=== PATIENT | female | born 1985 | race Caucasian/White ===

== ENCOUNTER 2021-11-16 07:12 | Emergency (ER) | payer OTHER, SELFPAY ==
--- NOTE | ~2021-11-16 | XR_ITS ---
EXAMINATION: XR chest 2V DATE: 11/16/2021 07:49 INDICATION: Midsternal chest pain. TECHNIQUE: Frontal and lateral views of the chest were obtained. COMPARISON: CT abdomen and pelvis 09/03/2017 FINDINGS: The chest demonstrates clear lungs without pneumonia, pleural effusion, or pneumothorax. Th e heart size is normal. There is mild chronic anterior wedging of multiple vertebral bodies. IMPRESSION: 1. No acute cardiopulmonary disease. Reviewed, dictated and finalized at location A. TRIC MOTOR REBUILDER
[2021-11-16 07:21] VITALS: BP 122/87; PULSE 105; RESP 18; TEMP 36.6; O2SAT 100
[2021-11-16 07:33] VITALS: PULSE 106
--- NOTE | 2021-11-16 07:34 | ECG_ITS ---
Measurements Intervals [place] Rate: 116 P: 25 W[place]: 116 QRS: 6 QRSD: 90 T: 10 QT: 326 QTc: 453 Interpretive Statements SINUS TACHYCARDIA WITH SHORT [place] INTERVAL DELAYED PRECORDIAL R/S TRANSITION CONSIDER INFERIOR INFARCT, AGE INDETERMINATE BASELINE ARTIFACT- II, III, AVR, AVF, V1-V6 ABNORMAL ECG Electronically Signed On 11-16-2021 11:55:23 HEALTH SERVICES MANAGER by Deuce Jackson D.O.
[2021-11-16 07:42] LABS: Basophils Percent Auto 0.3 % (0.2-1.2); Eosinophils Percent Auto 0.3 % (0-4.4); Hematocrit 44.9 % (37.0-47.0); Hemoglobin 14.4 g/dL (12.0-15.0); Immature Granulocyte Absolute 0.01 K/mm3 (0.00-0.031); Immature Granulocyte Percent A 0.2 % (0-0.5); Lymphocytes Absolute Auto 1.02 K/mm3 (0.9-3.2); Lymphocytes Percent Auto 16.5 % (18.3-44.2); Mean Corpuscular HGB Conc 32.1 g/dl (32-36); Mean Corpuscular Hemoglobin 27.8 pg (26-34); Mean Corpuscular Volume 86.7 fl (80-100); Mean Platelet Volume 9.4 fl (7.4-10.4); Monocytes Absolute Auto 0.4 K/mm3 (0.1-0.6); Monocytes Percent Auto 6.1 % (2.6-8.5); Neutrophils Absolute Auto 4.8 K/mm3 (1.3-6.7); Neutrophils Percent Auto 76.6 % (45.5-73.1); Platelet Count Result 335 k/mm3 (150-375); Red Blood Count 5.18 M/mm3 (4.2-5.4); Red Cell Distribution Width 14.7 % (11.5-14.5); White Blood Count 6.2 K/mm3 (4.5-10.0)
[2021-11-16 07:52] LABS: Alanine Aminotransferase 21 U/L (4-35); Albumin Level 4.3 g/dL (3.5-5.1); Alkaline Phosphatase 115 U/L (38-126); Anion Gap 10 mmol/L (8-16); Aspartate Amino Transferase 29 U/L (14-36); Bilirubin,Total 0.8 mg/dL (0.2-1.3); Blood Urea Nitrogen 13 mg/dL (7-17); Calcium 9.1 mg/dL (8.4-10.2); Carbon Dioxide 26 mmol/L (22-30); Chloride 102 mmol/L (98-107); Estimated CRCL calculation 135 ml/min; Estimated Glomerular Filt Rate > 60; Glucose 134 mg/dL (65-110); Lipase 53 U/L (23-300); Potassium 3.9 mmol/L (3.4-5.0); Sodium 138 mmol/L (137-145)
[2021-11-16 07:53] LABS: Prothrombin Time 12.7 Seconds (11.1-14.7)
[2021-11-16 07:54] LABS: Partial Thromboplastin Time 32.3 SECONDS (22.3-36.8)
[2021-11-16] MEDS: ASPIRIN 81 MG CHEWABLE TABLET 324 MG PO (07:54)
[2021-11-16 08:03] LABS: Troponin I < 0.012 ng/mL (0.000-0.034)
--- NOTE | 2021-11-16 08:40 | ED.CHESTPAIN ---
HPI - Chest Pain General Chief Complaint: Chest Pain Stated Complaint: Multiple Complaints, Chest Tightness Time Seen by Provider: 11/16/21 07:47 Source: patient and family Mode of arrival: ambulatory Limitations: no limitations History of Present Illness HPI narrative: Patient presents with chest tightness across the chest that started yesterday, at rest 10 out of 10, lasted for hours, currently 1 out of 10. Patient denies aggravating or relieving factors. Patient started on citalopram 1 month ago, 2 weeks later discontinued because of similar symptoms including chest tightness, lightheadedness, dizziness, tremors, shaking, poor concentration and headache. Then patient started on bupropion 2 weeks ago, patient been reading the medicine side effects and felt every one of them. Patient denies any history of hypertension, diabetes, hyperlipidemia, family history of coronary artery disease. Patient does not smoke. Related Data Allergies Allergy/AdvReac Type Severity Reaction Status Date / Time ciprofloxacin Allergy Unknown Hives Verified 11/16/21 07:32 citalopram Allergy Swelling Verified 11/16/21 07:32 of the Eye Review of Systems Review of Systems: CONSTITUTIONAL: Denies fever, chills, or sweats. EYES: Denies visual changes, redness, or discharge. ENT: Denies rhinorrhea, congestion, sore throat, or otalgia. CARDIOVASCULAR: Denies chest pain, palpitations, or edema. RESPIRATORY: Denies cough or dyspnea. GASTROINTESTINAL: Denies abdominal pain, nausea, vomiting, or diarrhea. GENITOURINARY: Denies dysuria or hematuria. SKIN: Denies rash or itching. MUSCULOSKELETAL: Denies back pain, joint pain, or myalgia. NEUROLOGIC: Denies headache, numbness, or weakness. PSYCHIATRIC: Denies anxiety or depression. Exam Narrative: General appearance: Well-developed, well-nourished Skin: Normal color Head: Normocephalic, nontraumatic Eyes: Clear conjunctiva ENT: Oropharynx normal, ears normal, nose normal Neck: Supple, nontender Chest and respiratory: Airway patent, no respiratory distress, no accessory muscle use Heart: Regular rate/rhythm Abdomen: Soft, nontender, no organomegaly, quiet bowel sounds Vascular: Normal peripheral pulses, normal capillary refill. Musculoskeletal: Normal range of motion, nontender back Neurologic: Alert and oriented ?3, RIPSAWYER is normal as tested, no gross motor deficit Course Course Emergency Course: Improving Vital Signs Vital signs: Vital Signs Temperature 36.6 C 11/16/21 07:21 Pulse Rate 105 H 11/16/21 07:21 Respiratory Rate 18 11/16/21 07:21 Blood Pressure 122/87 11/16/21 07:21 Pulse Oximetry 100 11/16/21 07:21 Temperature 36.6 C 11/16/21 07:21 Pulse Rate 106 H 11/16/21 07:33 Respiratory Rate 18 11/16/21 07:21 Blood Pressure 122/87 11/16/21 07:21 Pulse Oximetry 100 11/16/21 07:21 MDM - Chest Pain MDM Narrative Medical decision making narrative: Patient symptoms is consistent with anxiety/depression, possible side effect of bupropion. The medication will stopped, patient need to call her family physician for another medicine. Differential Diagnosis Differential diagnosis: Likely atypical chest pain and other (Depression, anxiety) Lab Data Result diagrams: 11/16/21 07:36 11/16/21 07:36 Labs: Lab Results 11/16/21 11/16/21 11/16/21 Range/Units 07:36 07:36 07:36 WBC 6.2 (4.5-10.0) K/mm3 RBC 5.18 (4.2-5.4) M/mm3 Hgb 14.4 (12.0-15.0) g/dL Hct 44.9 (37.0-47.0) % MCV 86.7 (80-100) fl MCH 27.8 (26-34) pg MCHC 32.1 (32-36) g/dl RDW 14.7 H (11.5-14.5) % Plt Count 335 (150-375) k/mm3 MPV 9.4 (7.4-10.4) fl
[2021-11-16 09:11] VITALS: PULSE 96; RESP 18; O2SAT 100
== END 2021-11-16 09:12 | disposition home or self-care (01) ==
PROVIDERS: Emergency Provider Emergency Medicine
DX: R07.89 Other chest pain (principal)
CPT/HCPCS: 36415; 71046; 80053; 83690; 84484; 85025; 85610; 85730; 93005; 99284; A9270

== ENCOUNTER 2023-12-07 11:05 | Emergency (ER) | payer OTHER, SELFPAY ==
--- NOTE | ~2023-12-07 | US_ITS ---
Duplex Sonography of the left extremity: Indication: Pain Findings: Sagittal and transverse B-mode images as well as color-flow imaging were performed on the l eft femoral and popliteal veins. B-mode examination was done without and with compression in the tra nsverse plane. There is good visualization of the common femoral, proximal profunda femoral, superfi cial femoral, greater saphenous, and popliteal veins. Normal flow was seen on color-flow imaging. No rmal compressibility was demonstrated. Visualized calf veins are also patent. Impression: No evidence of deep vein thrombosis involving the left lower extremity. Reviewed, dictated and finalized at location M. UDING PRESS ADJUSTER Impression: No evidence of deep vein thrombosis involving the left lower extremity.
[2023-12-07 11:28] VITALS: BP 151/98; PULSE 99; RESP 17; TEMP 36.2; O2SAT 99
--- NOTE | 2023-12-07 12:11 | ED.GENADULT ---
HPI - General Adult General Chief complaint: Extremity Injury, Lower <Odessa Rhodes March VICE PRESIDENT [employer]WORK - Last Filed: 12/09/23 20:05> Stated complaint: above L knee pain, redness, tenderness, swellling <Odessa Rhodes MarchMICHAELN - Last Filed: 12/09/23 20:05> Time Seen by Provider: 12/07/23 12:35 <Odessa Rhodes March VICE PRESIDENT [employer]WORK - Last Filed: 12/09/23 20:05> Source: patient <Jessica Jones MD - Last Filed: 12/08/23 13:39> Mode of arrival: ambulatory <Jessica Jones MD - Last Filed: 12/08/23 13:39> Limitations: no limitations <Jessica Jones MD - Last Filed: 12/08/23 13:39> History of Present Illness HPI narrative: Silke San is a 38 y/o female hx of PCOS not on any daily medications comes in with complaints of having left lower leg pain that she first noticed about a week, improved on its own and then back the last couple days. She states she does have some redness to the area of pain/ no rashes/lesions/ open wounds. No hx of DVT. Pain is worse with palpation and she notices it when shes laying in bed but does not notice that walking/ ROM makes the pain worse/ Denies any trauma/ fall/ known injury <Odessa Rhodes March, VICE PRESIDENT NETWORK - Last Filed: 12/09/23 20:05> Silke San is a 38 y/o female hx of PCOS not on any daily medications comes in with complaints of having left lower leg pain that she first noticed about a week, improved on its own and then back the last couple days. She states she does have some redness to the area of pain/ no rashes/lesions/ open wounds. No hx of DVT. Pain is worse with palpation and she notices it when shes laying in bed but does not notice that walking/ ROM makes the pain worse/ Denies any trauma/ fall/ known injury . It is located above and below the knee joint, red, tender and swollen. /10 in severity. Not on hormones/OCPs. no recent travel. No family Hx of unprovoked DVT/PE (maternal grandfather might have developed a blood clot after a hip fracture). PCP Dr [facility] at [facility] <Jessica Jones MD - Last Filed: 12/08/23 13:39> Related Data Allergies/adverse reactions: Allergies Allergy/AdvReac Type Severity Reaction Status Date / Time ciprofloxacin Allergy Unknown Hives Verified 12/07/23 12:21 citalopram Allergy Swelling Verified 12/07/23 12:21 of the Eye <Odessa Hartley, VICE PRESIDENT NETWORK - Last Filed: 12/09/23 20:05> Review of Systems Review of Systems: All systems reviewed & are unremarkable except as noted in HPI and below <Odessa Rhodes March VICE PRESIDENT [employer]WORK - Last Filed: 12/09/23 20:05> PMFSH Family History Family History: Family History (Updated 12/08/23 @ 13:31 by Jessica Jones MD) Legal Guardian Blood clot in vein after hip surgery <Odessa Hartley, VICE PRESIDENT NETWORK - Last Filed: 12/09/23 20:05> Exam Const: General: healthy appearing, no acute distress and alert; No confusion, diaphoretic or ill appearing <Jessica Jones MD - Last Filed: 12/08/23 13:39> Nutritional Appearance: well nourished and obese <Jessica Jones MD - Last Filed: 12/08/23 13:39> Orientation/consciousness: patient oriented x3 <Jessica Jones MD - Last Filed: 12/08/23 13:39> Limitations: no limitations <Jessica Jones MD - Last Filed: 12/08/23 13:39> HENMT: Head: normal to inspection <Jessica Jones MD - Last Filed: 12/08/23 13:39> Other: gross auditory acuity intact <Jessica Jones MD - Last Filed: 12/08/23 13:39> Eyes: Conjunctivae: conjunctivae normal <Jessica Jones MD - Last Filed: 12/08/23 13:39> Direct Ophthalmoscopy: no photophobia <Jessica Jones MD - Last Filed: 12/08/23 13:39> Neck: Neck: normal visual inspection <Jessica Jones MD - Last Filed: 12/08/23 13:39> Resp: Effort & Inspection: normal respiratory effort, not labored, no retractions, not tachypneic and no use of accessory muscles <Jessica Jones MD - Last Filed: 12/08/23 13:39> Cardio: Rate: regular rate <Jessica Jones MD - [place]
[2023-12-07 12:40] LABS: Basophils Percent Auto 0.4 % (0.2-1.2); Eosinophils Percent Auto 0.1 % (0-4.4); Hematocrit 45.7 % (37.0-47.0); Hemoglobin 14.1 g/dL (12.0-15.0); Immature Granulocyte Absolute 0.01 K/mm3 (0.00-0.031); Immature Granulocyte Percent A 0.1 % (0-0.5); Lymphocytes Absolute Auto 1.23 K/mm3 (0.9-3.2); Lymphocytes Percent Auto 18.4 % (18.3-44.2); Mean Corpuscular HGB Conc 30.9 g/dl (32-36); Mean Corpuscular Hemoglobin 26.9 pg (26-34); Mean Platelet Volume 9.5 fl (7.4-10.4); Monocytes Absolute Auto 0.3 K/mm3 (0.1-0.6); Monocytes Percent Auto 4.9 % (2.6-8.5); Neutrophils Absolute Auto 5.1 K/mm3 (1.3-6.7); Neutrophils Percent Auto 76.1 % (45.5-73.1); Platelet Count Result 362 k/mm3 (150-375); Red Blood Count 5.25 M/mm3 (4.2-5.4); Red Cell Distribution Width 14.6 % (11.5-14.5); White Blood Count 6.7 K/mm3 (4.5-10.0)
[2023-12-07 12:53] LABS: Anion Gap 8 mmol/L (8-16); Blood Urea Nitrogen 11 mg/dL (7-17); Calcium 9.3 mg/dL (8.4-10.2); Carbon Dioxide 29 mmol/L (22-30); Chloride 101 mmol/L (98-107); Estimated CRCL calculation 151 ml/min; Estimated Glomerular Filt Rate > 60; Glucose 117 mg/dL (65-110); Potassium 3.6 mmol/L (3.4-5.0); Sodium 138 mmol/L (137-145)
== END 2023-12-07 14:28 | disposition home or self-care (01) ==
LOC: ANHED 14:17
PROVIDERS: Nurse Practitioner Family; Emergency Provider Student in an Organized Health Care Education/Training Program; PCP Physician Assistant
DX: I80.02 Phlebitis and thrombophlebitis of superficial vessels of left lower extremity (principal); E28.2 Polycystic ovarian syndrome
CPT/HCPCS: 36415; 80048; 85025; 93971; 99284

== ENCOUNTER 2025-04-29 10:40 | Emergency (ER) | payer OTHER, SELFPAY ==
[2025-04-29 10:55] VITALS: BP 144/82; PULSE 93; RESP 16; TEMP 36.3; O2SAT 100
--- NOTE | 2025-04-29 11:24 | ED.ANIMALBIT ---
HPI - Animal Bite General Chief Complaint: Animal Bite Stated Complaint: cat cut on finger Time Seen by Provider: 04/29/25 10:42 Source: patient Mode of arrival: ambulatory Limitations: no limitations History of Present Illness HPI narrative: 40-year-old female presents to [facility] with complaints of cat scratch to her right index finger since yesterday. Patient reports that her own cat scratched her right index finger yesterday. Patient reports her last tetanus shot was last given in 2023. patient reports that the cat did not bite her and cat is up-to-date on its vaccinations. Patient reports mild erythema and pain to the area. Patient denies open wounds, bleeding, bruising, fever, body aches, chills, nausea vomiting or diarrhea. Onset (ago): day(s) (1) Description of animal: household pet Mechanism: scratch Location: other (right index finger ) Related Data Home Medications ?Medication ?Instructions ?Recorded ?Confirmed ?Last Taken ?Type drospirenone 3 mg-ethinyl tablet 04/29/25 Unknown History estradiol 0.02 mg tablet Allergies Allergy/AdvReac Type Severity Reaction Status Date / Time ciprofloxacin Allergy Unknown Hives Verified 04/29/25 11:07 citalopram Allergy Swelling Verified 04/29/25 11:07 of the Eye Review of Systems Constitutional: Constitutional: Denies chills, Denies fatigue, Denies fever(s) and Denies weakness ENT: Denies nasal congestion and Denies sore throat Gastrointestinal: Gastrointestinal: Denies diarrhea, Denies nausea and Denies vomiting Musculoskeletal: Comments: cat scratch to right index finger Integumentary/Breasts: Skin/Breast: Denies pruritus, Reports erythema, Denies rash and Denies skin ulcer Comments: cat scratch to right index finger PMFSH Family History Family History (Updated 12/08/23 @ 13:31 by Jessica Jones MD) Legal Guardian Blood clot in vein after hip surgery Comments At time of signature, I agree with nursing past medical, surgical, social and family history. There is no relevant family history pertinent to the presenting complaint. Exam Const: General: healthy appearing and no acute distress Nutritional Appearance: well nourished Orientation/consciousness: patient oriented x3 Limitations: no limitations HENMT: Head: normal to inspection Eyes: Conjunctivae: conjunctivae normal Neck: Neck: normal visual inspection Resp: Effort & Inspection: normal respiratory effort and not labored Auscultation: clear to auscultation bilaterally, no crackles, no rales, no rhonchi and no wheezes Cardio: Rate: regular rate Rhythm: regular rhythm Heart sounds: no murmurs Skin: General skin exam: normal color Wounds: wounds noted Other: Pinpoint healing wound noted to distal aspect of right index finger. There is mild surrounding swelling and erythema. No bruising, purulent drainage, bleeding noted. Full range of motion noted. Neuro: General: patient oriented x3 and moves all extremities Speech: normal speech Gait exam (Neuro): Normal gait present Psych: Mental Status: mental status grossly normal Affect: normal affect Attitude: cooperative Course Course Level of Care: Express Care Visit Vital Signs Vital signs: Vital Signs Temperature 36.3 C L 04/29/25 10:55 Pulse Rate 93 04/29/25 10:55 Respiratory Rate 16 04/29/25 10:55 Blood Pressure 144/82 H 04/29/25 10:55 Pulse Oximetry 100 04/29/25 10:55 Oxygen Delivery Room Air 04/29/25 10:55 Temperature 36.3 C L 04/29/25 10:55 Pulse Rate 93 04/29/25 10:55 Respiratory Rate 16 04/29/25 10:55 Blood Pressure 144/82 H 04/29/25 10:55 Pulse Oximetry 100 04/29/25 10:55 Oxygen Delivery Room Air 04/29/25 10:55 MDM - Animal Bite MDM Narrative Medical decision making narrative: will treat patient with Zithromax due to cat scratch. The patient again denies cat bite. patient reports history of yeast infections with antibiotics. Patient agrees to only take Diflucan if she would start with yeast infection symptoms. Patient agrees to monitor symptoms very closely and agrees to proceed emergency room if symptoms worsen. Differential Diagnosis Differential diagnosis: Likely bite by animal, cat bite and other ( Cellulitis) Critical Care Time Critical Care Time Critical Care Time: No Discharge Plan Discharge Clinical Impression: Cat scratch Patient Disposition: Home Condition: Stable Instructions: Antibiotic Form, Cat Scratch Disease (ED) Additional Instructions: Wash wound with mild soap and water take antibiotic as prescribed start Diflucan only if you develop signs and symptoms of yeast infection monitor symptoms closely and proceed to the emergency room symptoms worsen Patient Language: Tamazight Prescriptions: New azithromycin [Zithromax Z-Kiet] 250 mg tablet See Rx Instructions .ROUTE .COMPLEX Qty: 6 0RF Rx Instructions: For 250 mg dose pack: take 500 mg today (day 1), then 250 mg for 4 days (days 2-5) fluconazole [Diflucan] 100 mg tablet 100 mg PO DAILY Qty: 1 0RF No Action drospirenone-ethinyl estradiol 3-0.02 mg tablet ibuprofen 200 mg capsule 600 mg PO Q8H PRN (Reason: pain) Qty: 30 0RF Follow-up/Referrals: Don,SHAUN Moran [Primary Care Provider] - Time of Disposition: 11:37
== END 2025-04-29 11:40 | disposition home or self-care (01) ==
PROVIDERS: Emergency Provider Nurse Practitioner Family; PCP Physician Assistant
DX: S60.410A Abrasion of right index finger, initial encounter (principal); W55.03XA Scratched by cat, initial encounter
CPT/HCPCS: 99213; G0463

== ENCOUNTER 2025-09-11 15:54 | Emergency (ER) | payer OTHER, SELFPAY ==
--- NOTE | ~2025-09-11 | CT_ITS ---
CT abd pelvis lumbar w con INDICATION:concern for pyelonephritis . COMPARISON: None. TECHNIQUE: Axial images of the abdomen and pelvis were obtained following infusion of 100 mL Isovue 300. Dose optimization technique was utilized. FINDINGS: The lung bases are clear. The liver parenchyma is unremarkable. No intrahepatic mass or ductal dilatation is evident. The gallbladder is unremarkable. The pancreas and spleen are normal in appearance. The adrenal glands are symmetric in size. The kidneys demonstrate symmetric uptake and excretion of contrast. 1.6 cm there left renal cyst. There is no solid mass. There is no hydronephrosis. Evaluation of the stomach and bowel loops are limited due to lack of oral contrast. The appendix is normal in appearance. The bladder and rectum are normal. No free intraperitoneal fluid or air is evident. There is no significant retroperitoneal lymphadenopathy. The aorta, visceral vessels and renal arteries demonstrate normal caliber and patency. The lower thoracic and lumbar vertebrae are in normal alignment. IMPRESSION: No acute abnormality is noted in the abdomen and pelvis. CT LUMBAR SPINE WITH CONTRAST INDICATION: Back pain COMPARISON: None available. TECHNIQUE: Axial 2.5 mm images of the lumbar spine were obtained with contrast. Additional coronal and sagittal reformatted images were rendered. FINDINGS: The axial images demonstrate no acute fracture or paravertebral soft tissue swelling. There is severe degenerative changes at L5-S1 with disc bulging causing severe central canal stenosis. IMPRESSION: No acute compression fracture or spondylolisthesis. Severe degenerative changes at L5-S1. All CT scans at this facility are performed using low dose modulation techniques as appropriate to perform exam including the following: automated exposure control; use of iterative reconstruction technique; adjustment of the mA and/or kV according to patient size (this includes techniques or standardized protocols for targeted exams where dose is matched to indication/reason for exam). Reviewed, dictated and finalized at location S. IMPRESSION: No acute abnormality is noted in the abdomen and pelvis. CT LUMBAR SPINE WITH CONTRAST INDICATION: Back pain COMPARISON: None available. TECHNIQUE: Axial 2.5 mm images of the lumbar spine were obtained with contrast. Additional coronal and sagittal reformatted images were rendered. FINDINGS: The axial images demonstrate no acute fracture or paravertebral soft tissue swelling. There is severe degenerative changes at L5-S1 with disc bulgin g causing severe central canal stenosis. IMPRESSION: No acute compression fracture or spondylolisthesis. Severe degenerative changes at L5-S1. All CT scans at this facility are performed using low dose modulation techniqu es as appropriate to perform exam including the following: automated exposure c ontrol; use of iterative reconstruction technique; adjustment of the mA and/or kV according to patient size (this includes techniques or standardized protocol s for targeted exams where dose is matched to indication/reason for exam).
--- OUTSIDE RECORDS SUMMARY | 2025-09-11 14:45 | XMS_ITS | Encounter Summary ---
Author Organization [facility] Healthcare Address [address] [place] [address] Care Team Providers Care Paper Supervisor Name Role Phone Luisa Ochoa Primary Care Provider [phone] Reason for Visit * Reason Comments Flank Pain C/o LT sided flank p ain, Lt sided lower back pain , ALEXIS, lack of appetite, bloating, nausea, weakness x . Encounter Details Date Type Department Care Team (Late st Contact Info) Description 09/11/2025 2:45 PM CDT Office Visit [facility] [address] [place] [id number] Roger Arauz, MELANY [address] [facility] [place] [address] Flank pain, unspecified laterality (Primary Dx); Personal history of kidney stones; Tachycardia; Pre-diabetes; Morbid obesity (HCC) Social History Tobacco Use Types Packs/Day Years Used Date Smoking Tobacco: Never Smokeless Tobacco: Never AUDIT-C Answer Date Recorded Q1: How often do you have a drink containing alc ohol? Monthly or less 04/05/2025 Q2: How many drinks containi ng alcohol do you have on a typical day when you are drinking? 1 or 2 04/05/2025 Q3: How often do you have si x or more drinks on one occasion? 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 Not on file Not on file documented as of this encounter Last Filed Vital Signs Vital Sign Reading Time Taken Comments Blood Pressure 122/80 09/11/2025 2:21 PM CDT Pulse 123 09/11/2025 2:21 PM CDT Temperature 36.2 C (97.2 F) 09/11/2025 2:21 PM CDT Respiratory Rate 18 09/11/2025 2:21 PM CDT Oxygen Saturation 99% 09/11/2025 2:21 PM CDT Inhaled Oxygen Concentration - - Weight - - Height 170.2 cm (5' 7) 09/11/2025 2:21 PM CDT Body Mass Index - - documented in this encounter Miscellaneous Notes * Assessment & Plan Note - Roger Arauz NP - 09/11/2025 2:45 PM CDT Associated Problem(s): Pre-diabetes * Assessment & Plan Note - Roger Arauz NP - 09/11/2025 2:45 PM CDT Associated Problem(s): Morbid obesity (HCC) * Assessment & Plan Note - Roger Arauz NP - 09/11/2025 2:45 PM CDT Associated Problem(s): Personal history of kidney stones documented in this encounter Plan of Treatment Not on file documented as of this encounter Procedures Procedure Name Priority Date/Time Associated Diagnosis Comments POCT URINALYSIS DIPSTICK Routine 09/11/2025 2:39 PM CDT Flank pain, unspecified laterality POCT HCG, URINE Routine 09/11/2025 2:38 PM CDT Flank pain, unspecified laterality documented in this encounter Results * (ABNORMAL) POCT urinalysis dipstick (09/11/2025 2:39 PM CDT) Color, Urine, POC Yellow Clarity, ur, POC Cloudy(A) Clear Glucose, ur, POC Negative Negative Bilirubin, ur, POC Negative Negative Ketones, ur, POC Negative Negative Specific [place], POC 1.030 1.003 - 1.030 Blood, ur, POC Negative Negative pH, ur, POC 5.5 5.0 - 8.0 Protein, ur, POC 30.(A) Negative Urobilinogen, urine, POC 0.2 0.2 - 1.0 mg/dL Nitrite, ur, POC Negative Negative Leukocytes, ur, POC Trace(A) Negative Lot Number [id number] Urine 09/11/2025 2:39 PM CDT Roger Arauz NP POINT OF CARE TEST OR DERABLES Final Result * POCT hCG, urine (09/11/2025 2:38 PM CDT) HCG, ur, POC Negative Negative Lot Number [id number] QC Backgroud Clear Acceptable QC Control Line Acceptable Urine 09/11/2025 2:38 PM CDT Roger Arauz CHEMICAL WEIGHER POINT OF CARE TEST OR DERABLES Final Result documented in this encounter Visit Diagnoses Diagnosis Flank pain, unspecified laterality- Primary Personal history of kidney stones Personal history of urinary calculi Tachycardia Unspecified tachycardia Pre-diabetes Other abnormal glucose Morbid obesity (HCC) Morbid obesity documented in this encounter Historical Medications * This list may reflect changes made after this encounter. LORazepam (ATIVAN) 0.5 mg tablet Take 1 tablet (0.5 mg total) by mouth every 6 (six) hours as needed for anxiety added in this encounter Care Teams Paper Supervisor Relationship Specialty Start Date End Date Luisa Ochoa PA [address] [address] PCP - General Internal Medicine 11/12/21 documented as of this encounter
--- OUTSIDE RECORDS SUMMARY | 2025-09-11 14:45 | XMS_ITS | Encounter Summary ---
Author Organization [facility] Healthcare Address [address] [place] [address] Care Team Providers Care Finisher Brush Name Role Phone Luisa Ochoa Primary Care Provider [phone] Reason for Visit * Reason Comments Flank Pain C/o LT sided flank p ain, Lt sided lower back pain , ALEXIS, lack of appetite, bloating, nausea, weakness x . 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 Flank pain and lower back pain She experiences intermittent lower back pain with significant episodes and has a history of sciatica and kidney stones. The differential diagnosis includes musculoskeletal pain, kidney stones, or PCOS-related pain. Symptoms include extreme bloating, weakness, and tenderness in the middle abdomen, with pain deep in the lower front area. Urinalysis shows trace leukocytes and protein, not indicativeof infection. A negative test was noted. Symptoms suggest a possible kidney stone or condition requiring further evaluation. Recommend evaluation at an emergency department or urgent care with lab and x-ray capabilities to rule out kidney stones or other serious conditions. Suggest going to [facility] if previously treated there for kidney stones. Tachycardia Her heart rate is 123 bpm. Possible contributing factors include anxiety, dehydration, recent cessation of caffeine, white coat syndrome, and a panic attack this morning. Address potential dehydration by encouraging fluid intake. Thank you choosing [facility] and allowing me to care for you today. I hope you felt well supported and feel that you received the best care possible. I strive to provide you with EXCELLENT service. You may receive a survey after your visit today. If you cannot rate your experience as EXCELLENT, please let us know how we can improve and better meet your needs. If you have any questions about your treatment plan, please do not hesitate to reach out. If you have no improvement or worsening of your symptoms, please follow up with your Primary Care Provider, [facility] and or Emergency Room. It was my pleasure to see you today, I hope you feel better soon! Thank you for choosing [facility]! Respectfully, Roger Arauz DNP, FURRIER APPRENTICE-BC, PMHNP-BC documented in this encounter Progress Notes * Roger Arauz NP - 09/11/2025 2:45 PM CDT Images from the original note were not included. This patient has verbally consented to recording this visit in order to utilize AI technology in generating this note. Subjective/Objective Patient ID: Silke San is a 40 y.o. female. Chief Complaint Flank Pain (C/o LT sided flank pain, Lt sided lower back pain , ALEXIS, lack of appetite, bloating, nausea, weakness x . ) History of Present Illness History of Present Illness Silke San is a 40 year old female with kidney stones and PCOS who presents with lower back pain and general malaise. She experiences intermittent lower back pain, sometimes related to sciatic issues, similar to previous kidney stone episodes, particularly noted on or Thursday in her lower back and side. She also reports extreme bloating during this time. She maintains normal daily bowel movements but experiences gas. She feels unwell, describing herself as 'super weak' with daily headaches, which she attributes partly to caffeine withdrawal over the past five or six days. Her heart rate is elevated, which she attributes to anxiety and a panic attack earlier in the day. She feels generally abnormal and unwell. She has a history of PCOS and often experiences left-sided pain during ovulation, wondering if her current symptoms could be related to this condition. Urinalysis shows a little protein and elevated specific gravity, but trace leukocytes are not a concern. A test is negative. Vital Signs: Vitals: 09/11/25 1421 BP: 122/80 Pulse: 123 Resp: 18 Temp: 36.2 ??C (97.2 ??F) TempSrc: Temporal SpO2: 99% Height: 170.2 cm (5' 7) Body mass index is 55.48 kg/m??. Rating her pain today as a 7 on 0-10 scale. Medications: Current Outpatient Medications: LORazepam (ATIVAN) 0.5 mg tablet, Take 1 tablet (0.5 mg total) by mouth every 6 (six) hours as needed for anxiety, Disp: , Rfl: meloxicam (MOBIC) 7.5 mg tablet, Take 1 tablet (7.5 mg total) by mouth daily, Disp: 30 tablet, Rfl:0 busPIRone (BUSPAR) 7.5 mg tablet, Take 1 tablet (7.5 mg total) by mouth 3 (three) times a day (Patient not taking: Reported on 09/11/2025), Disp: 90 tablet, Rfl: 1 drospirenone-ethinyl estradioL (KEYLA,GIANVI) 3-0.02 mg per tablet, Take 1 tablet by mouth daily (Patient not taking: Reported on 09/11/2025), Disp: 84 tablet, Rfl: 0 ergocalciferol (VITAMIN D) 50,000 unit capsule, Take 1 capsule (50,000 Units total) by mouth once aweek (Patient not taking: Reported on 09/11/2025), Disp: 13 capsule, Rfl: 2 Allergies: Allergies Allergen Reactions Ciprofloxacin Hives Citalopram Eye irritation Medical History: Past Medical History: Diagnosis Date Anxiety Depression PCOS (polycystic ovarian syndrome) Surgical History: No past surgical history on file. Family History: Family History Problem Relation Age of Onset Hyperlipidemia Mother Essential Tremor Mother Multiple sclerosis Father Hyperlipidemia Father Alzheimer's disease Maternal Grandfather Heart disease Maternal Grandfather Diabetes Paternal Grandmother Heart attack Paternal Grandfather Other (autoimmune conditions) Other paternal grandma Psoriais; pat Aunt Raynauds Review of Systems Negative except as documented in history of present illness. Physical Exam Physical Exam VITALS: P- 123 GENERAL: Alert, cooperative, well developed, no acute distress-morbidly obese HEENT: Normocephalic, normal oropharynx, moist mucous membranes CHEST: Clear to auscultation bilaterally, no wheezes, rhonchi, or crackles CARDIOVASCULAR: Normal heart rate and rhythm, S1 and S2 normal without murmurs ABDOMEN: Tender in the middle, soft, non-distended, without organomegaly, normal bowel sounds, no costovertebral angle tenderness. No masses or organomegally grossly appreciated. Exam limited by bodyhabitus. EXTREMITIES: No cyanosis or edema NEUROLOGICAL: Cranial nerves grossly intact, moves all extremities without gross motor or sensory deficit Orders Placed This Encounter POCT urinalysis dipstick POCT hCG, urine Recent Results (from the past 4 hours) POCT hCG, urine Collection Time: 09/11/25 2:38 PM Result Value Ref Range HCG, ur, POC Negative Negative Lot Number [id number] QC Backgroud Clear Acceptable QC Control Line Acceptable POCT urinalysis dipstick Collection Time: 09/11/25 2:39 PM Result Value Ref Range Color, Urine, POC Yellow Clarity, ur, POC Cloudy (A) Clear Glucose, ur, POC Negative Negative Bilirubin, ur, POC Negative Negative Ketones, ur, POC Negative Negative Specific Tennyson, POC 1.030 1.003 - 1.030 Blood, ur, POC Negative Negative pH, ur, POC 5.5 5.0 - 8.0 Protein, ur, POC 30. (A) Negative Urobilinogen, urine, POC 0.2 0.2 - 1.0 mg/dL Nitrite, ur, POC Negative Negative Leukocytes, ur, POC Trace (A) Negative Lot Number [id number] Assessment & Plan Flank pain and lower back pain She experiences intermittent lower back pain with significant episodes and has a history of sciatica and kidney stones. The differential diagnosis includes musculoskeletal pain, kidney stones, or PCOS-related pain. Symptoms include extreme bloating, weakness, and tenderness in the middle abdomen, with pain deep in the lower front area. Urinalysis shows trace leukocytes and protein, not indicativeof infection. A negative test was noted. Symptoms suggest a possible kidney stone or condition requiring further evaluation. Recommend evaluation at an emergency department or urgent care with lab and x-ray capabilities to rule out kidney stones or other serious conditions. Suggest going to [facility] if previously treated there for kidney stones. Tachycardia Her heart rate is 123 bpm. Possible contributing factors include anxiety, dehydration, recent cessation of caffeine, white coat syndrome, and a panic attack this morning. Address potential dehydration by encouraging fluid intake. Recording duration: 6 minutes Assessment & Plan Flank pain, unspecified laterality Orders: POCT urinalysis dipstick POCT hCG, urine Personal history of kidney stones Tachycardia Pre-diabetes Morbid obesity (HCC) Disposition Treatment plan including expectations, follow up, and return precautions discussed with patient/parent, verbalizes understanding. Medication dosage, use, and potential adverse reactions discussed with patient/parent. Advised to follow up with PCP if symptoms do not resolve as expected or sooner if condition worsens. Signs/symptoms warranting ER evaluation reviewed. Patient and/or guardian was given an opportunity to ask questions, questions answered. Roger Arauz NP 09/11/25 5:25 PM documented in this encounter Miscellaneous Notes * [...] Negative Ketones, ur, POC Negative Negative Specific Tennyson, POC 1.030 1.003 - 1.030 Blood, ur, POC Negative Negative pH, ur, POC 5.5 5.0 - 8.0 Protein, ur, POC 30.(A) Negative Urobilinogen, urine, POC 0.2 0.2 - 1.0 mg/dL Nitrite, ur, POC Negative Negative Leukocytes, ur, POC Trace(A) Negative Lot Number [id number] Urine 09/11/2025 2:39 PM CDT Roger Arauz NP POINT OF CARE TEST OR DERABLES Final Result * POCT hCG, urine (09/11/2025 2:38 PM CDT) HCG, ur, POC Negative Negative Lot Number [id number] QC Backgroud Clear Acceptable QC Control Line Acceptable Urine 09/11/2025 2:[address] Roger Arauz [address] CLEANING EQUIPMENT OPERATOR POINT OF CARE TEST OR DERABLES Final [...] anxiety added in this encounter Care Teams Finisher Brush Relationship Specialty Start Date End Date Luisa Ochoa PA [address] [place] [address] PCP - General Internal Medicine 11/12/21 documented as of this encounter
--- OUTSIDE RECORDS SUMMARY | 2025-09-11 16:12 | XMS_ITS | Clinical Summary ---
Author Organization [facility] [address] [facility] Address [address] [place] [address] Care Team Providers Care Information Technology Professor Name Role Phone Luisa Ochoa Primary Care Provider [phone] Allergies Active Allergy Reactions Criticality Noted Date Comments Ciprofloxacin Hives Medium 12/09/2021 Citalopram Eye irritation Low 12/09/2021 Medications ergocalciferol (VITAMIN D) 50,000 unit capsule Take 1 capsule (50,000 Units total) by mouth once a week 13 capsule 2 2 Active Additional Information Patient not taking.Reported on 09/11/2025 busPIRone (BUSPAR) 7.5 mg tablet Take 1 tablet (7.5 mg total) by mouth 3 (three) times a day 90 tablet 1 4 Active Additional Information Patient not taking.Reported on 09/11/2025 meloxicam (MOBIC) 7.5 mg tabletIndicatio ns:Acute pain of right knee Take 1 tablet (7.5 mg total) by mouth daily 30 tablet 4 Active drospirenone-et hinyl estradioL (KEYLA,GIANVI) 3-0.02 mg per tabletIndicatio ns:PCOS (polycystic ovarian syndrome) Take 1 tablet by mouth daily 84 tablet 5 Active Additional Information Patient not taking.Reported on 09/11/2025 LORazepam (ATIVAN) 0.5 mg tablet Take 1 tablet (0.5 mg total) by mouth every 6 (six) hours as needed for anxiety Active Active Problems Problem Noted Date Diagnosed Date Personal history of kidney stones 09/11/2025 Assessment & Plan (09/11/2025 2:58 PM CDT): BMI 50.0-59.9, adult 04/05/2025 Assessment & Plan (04/05/2025 7:39 AM CDT): Discussed the patient's BMI. The BMI is above average. BMI management plan is completed. BMI Follow-up includes: nutrition counseling, exercise counseling and education provided. Morbid obesity 04/05/2025 Assessment & Plan (09/11/2025 2:51 PM CDT): Assessment & Plan (04/11/2025 12:43 PM CDT): Discussed the patient's BMI. The BMI is above average. BMI management plan is completed. BMI Follow-up includes: nutrition counseling, exercise counseling and education provided. Episode of recurrent major depressive disorder 0 12/15/2023 Annual physical exam 12/15/2023 Assessment & Plan (12/15/2023 10:52 AM SUPERVISOR GEAR REPAIR): Encouraged healthy lifestyle, good nutrition and exercise. Encouraged Calcium and Vitamin D and weight bearing exercise for bone health. Reviewed immunizations Reviewed age appropirate screenings. Thrombophlebitis 12/15/2023 Assessment & Plan (12/15/2023 10:51 AM SUPERVISOR GEAR REPAIR): This is a significant, separately identifiable problem that was evaluated and managed on the same day as the wellness exam Thrombophlebitis left lower extremity. Encouraged heat to the area. Encouraged compression stockings which may end up needing to be complete lower extremity to cover the areas it goes across the mid thigh. She may use an aspirin daily for the next month to see if this also helps. If symptoms persist could consider referral to vascular for further evaluation. Stressed the importance of weight loss and compression is part of the treatment plan. Pre-diabetes 02/02/2022 Assessment & Plan (09/11/2025 2:51 PM CDT): Assessment & Plan (04/11/2025 12:43 PM CDT): Pre-diabetes/hyperglycemia is a precursor to Dm. Stressed importance of working on diet (decrease your simple sugars and one carbohydrate with each meal) and increase you exercise to achieve weight loss and this will help prevent you from progressing to diabetes. Assessment & Plan (12/15/2023 8:54 AM SUPERVISOR GEAR REPAIR): Pre-diabetes/hyperglycemia is a precursor to Dm. Stressed importance of working on diet (decrease your simple sugars and one carbohydrate with each meal) and increase you exercise to achieve weight loss and this will help prevent you from progressing to diabetes. Assessment & Plan (02/18/2022 12:42 PM CDT): Pre-diabetes/hyperglycemia is a precursor to Dm. Stressed importance of working on diet (decrease your simple sugars and one carbohydrate with each meal) and increase you exercise to achieve weight loss and this will help prevent you from progressing to diabetes. Let patient know that unfortunately her insurance will not cover the G LP. Provided information regarding needed meds and good Rx and companies assistance programs to see if she can qualify otherwise. Still strongly encouraged her to monitor intake and exercise as she has been successful already and she can still do it. Assessment & Plan (02/02/2022 10:29 PM SUPERVISOR GEAR REPAIR): See PCOS Vitamin D deficiency 01/14/2022 Assessment & Plan (04/11/2025 12:43 PM CDT): Supplement Assessment & Plan (12/15/2023 8:54 AM SUPERVISOR GEAR REPAIR): Supplement Assessment & Plan (02/18/2022 12:42 PM CDT): Supplement Assessment & Plan (02/02/2022 10:29 PM SUPERVISOR GEAR REPAIR): Supplement PCOS (polycystic ovarian syndrome) 12/21/2021 Assessment & Plan (04/11/2025 12:44 PM CDT): This is a significant, separately identifiable problem that was evaluated and managed on the same day as the wellness exam With known PCOS. Has not been on any medication for quite a few years. Difficulty tolerating the metformin as felt shaky on it. Spironolactone give her a headache. Was on OCP for over 10 years but stopped it when she was working through infertility issues. Has decided against pursuing fertility and is willing to consider an anti androgen control to help with her PCOS symptoms. Recommend SLYND due to the anti-androgenic properties benefit in a PCOS patient. Reviewed risks benefits alternatives side effects and proper use. Will plan a day 1 start. Recheck PCOS labs Assessment & Plan (12/15/2023 8:53 AM SUPERVISOR GEAR REPAIR): Patient was diagnosed with PCOS at 16 years old. Currently not on any treatment as she states she can not tolerate the metformin spironolactone and does not want to be on control pills. Cycles are coming regular. Reminded her she needs to have a cycle at least every 90 days. She is still struggling with weight and advised without treatment of the PCOS weight loss will continue to be more difficult. Will get labs and reassess at her next visit. Assessment & Plan (02/02/2022 10:29 PM SUPERVISOR GEAR REPAIR): Discussed PCOS at length including pathophys, treatment options and education managers sequela not limited to Metabolic syndrome, DM, increased CVrisk. Stressed needs to have a cycle at least q 90 days to avoid increased risk for hyperplasia. Patient's A1c is at 6 so she is also prediabetic echo already. She is also obese. She would benefit from being on metformin for its anti antigenic affects but she is unable to tolerate due to GI side effects. Suggest Ozempic or another G LP. Provided sample for her to start. She does not have a history of pancreatitis. Provided instructions on proper use and she was able to demonstrate that the office. Will attempt to get this cleared by her insurance due to her increased risk of progression to his diabetes with an A1c already at 6. Assessment & Plan (12/21/2021 1:09 PM SUPERVISOR GEAR REPAIR): This is a significant, separately identifiable problem that was evaluated and managed on the same day as the wellness exam Discussed PCOS at length including pathophys, treatment options and alf sequela not limited to Metabolic syndrome, DM, increased CVrisk. Stressed needs to have a cycle at least q 90 days to avoid increased risk for hyperplasia. Discussed antiandrogenic medication/treatment options. Will check labs to confirm diagnosis. Influenza vaccine refused 12/21/2021 Assessment & Plan (12/21/2021 1:14 PM SUPERVISOR GEAR REPAIR): Encouraged. Pt refused Anxiety, generalized 12/21/2021 Assessment & Plan (12/15/2023 8:54 AM SUPERVISOR GEAR REPAIR): This is a significant, separately identifiable problem that was evaluated and managed on the same day as the wellness exam Discussed anxiety at length. She did the BuSpar and did not have any significant side effects but did not want to be on a daily medicine. Inquires about benzodiazepine as her sibling and mother are on them but reviewed the addiction and dependency characteristics of this group of medicines in relationship to anxiety especially chronic anxiety. Reviewed the risks benefits alternatives side effects of BuSpar. Encouraged to restart the 7.5 mg t.i.d.. Stressed to take 1 in the morning and at night faithfully and can use a 3rd 1 in the middle of the day if needed. Strongly encouraged counseling. Provided information from Psychology today. Assessment & Plan (02/18/2022 12:42 PM CDT): Continue BuSpar Assessment & Plan (02/02/2022 10:29 PM SUPERVISOR GEAR REPAIR): Continue per Psychiatry Assessment & Plan (12/21/2021 1:14 PM SUPERVISOR GEAR REPAIR): Continue per Psychiatry. Resolved Problems Problem Noted Date Diagnosed Date Resolved Date Breast cancer screening by mammogram 04/11/2025 07/05/2025 Assessment & Plan (04/11/2025 12:43 PM CDT): Mammogram order provided Screening examination for ST D (sexually transmitted disease) 04/11/2025 07/05/2025 Assessment & Plan (04/11/2025 12:44 PM CDT): Check STD labs. Patient wants. Declines HIV hepatitis and syphilis Cervical cancer screening 04/11/2025 Assessment & Plan (04/11/2025 12:44 PM CDT): Pap smear obtained. Reviewed screening follow-up pending results Encounter for routine gyneco logical examination with Papanicolaou smear of cervix 04/11/2025 07/05/2025 Assessment & Plan (04/11/2025 12:44 PM CDT): Encouraged healthy lifestyle, good nutrition and exercise. Encouraged Calcium and Vitamin D and weight bearing exercise for bone health. Reviewed immunizations Reviewed age appropirate screenings. BMI 50.0-59.9, adult 12/15/2023 Assessment & Plan (12/15/2023 7:54 AM SUPERVISOR GEAR REPAIR): Discussed the patient's BMI. The BMI is above average. BMI management plan is completed. BMI Follow-up includes: nutrition counseling, exercise counseling and education provided. Need for Tdap vaccination 12/15/2023 Assessment & Plan (12/15/2023 10:51 AM SUPERVISOR GEAR REPAIR): Updated in the office today Fatigue 12/15/2023 07/05/2025 Assessment & Plan (04/11/2025 12:43 PM CDT): Probably multifactorial. Check labs and followup to re-evaluate Assessment & Plan (12/15/2023 10:51 AM SUPERVISOR GEAR REPAIR): Probably multifactorial. Check labs and followup to re-evaluate Lipid screening 12/15/2023 07/05/2025 Assessment & Plan (04/11/2025 12:43 PM CDT): Check labs Assessment & Plan (12/15/2023 10:52 AM SUPERVISOR GEAR REPAIR): Check labs Morbid obesity with BMI of 50.0-59.9, adult 02/18/2022 07/05/2025 Assessment & Plan (04/05/2025 7:39 AM CDT): Discussed the patient's BMI. The BMI is above average. BMI management plan is completed. BMI Follow-up includes: nutrition counseling, exercise counseling and education provided. Assessment & Plan (12/15/2023 9:22 AM SUPERVISOR GEAR REPAIR): The BMI is above average. BMI management plan is completed. BMI Follow-up includes: nutrition counseling, exercise counseling and education provided. Discussed weight management issues for approximately 15 minutes. Encouraged to log all food/drink/intake to determine daily caloric intake. Reviewed 3500 calories = 1# of weight so have to register a deficit to lose. Discussed obtaining this by decreasing daily caloric intake and or increasing exercise. Discussed decreasing carbs. Maintaining enough protein. Monitor/be aware of serving size. Increase water. Avoid sugar sweetened drinks. She would like to restart a GLP as she had success with ozempic in the past but had difficulty with insurance coverage. Assessment & Plan (02/18/2022 12:43 PM CDT): Obesity is improved. Discussed the patient's BMI. The BMI is above average. BMI management plan is completed. BMI Follow-up includes: nutrition counseling, exercise counseling and education provided. Morbid obesity with BMI of 50.0-59.9, adult 01/14/2022 02/18/2022 Assessment & Plan (01/14/2022 9:08 AM SUPERVISOR GEAR REPAIR): Obesity is unchanged. Discussed the patient's BMI. The BMI is above average. BMI management plan is completed. BMI Follow-up includes: nutrition counseling, exercise counseling and education provided. Diabetes mellitus screening 12/21/2021 02/02/2022 Assessment & Plan (12/21/2021 1:09 PM SUPERVISOR GEAR REPAIR): Check labs Lipid screening 12/21/2021 02/02/2022 Assessment & Plan (12/21/2021 1:09 PM SUPERVISOR GEAR REPAIR): Check labs Fatigue 12/21/2021 02/02/2022 Assessment & Plan (12/21/2021 1:10 PM SUPERVISOR GEAR REPAIR): Probably multifactorial. Check labs and followup to re-evaluate Positive depression screening 12/09/2021 02/02/2022 Assessment & Plan (12/21/2021 1:06 PM SUPERVISOR GEAR REPAIR): Patient is undergoing evaluation and treatment with psychiatrist. She is just change her medications. She currently denies any suicidal or homicidal thoughts but is to follow up immediately those occur. BMI 50.0-59.9, adult 12/09/2021 022 Assessment & Plan (12/09/2021 7:49 AM SUPERVISOR GEAR REPAIR): Obesity is unchanged. Discussed the patient's BMI. The BMI is above average. BMI management plan is completed. BMI Follow-up includes: nutrition counseling, exercise counseling and education provided. Morbid obesity 12/09/2021 01/14/2022 Assessment & Plan (12/09/2021 7:49 AM SUPERVISOR GEAR REPAIR): Obesity is unchanged. Discussed the patient's BMI. The BMI is above average. BMI management plan is completed. BMI Follow-up includes: nutrition counseling, exercise counseling and education provided. Annual physical exam 12/09/2021 022 Assessment & Plan (12/21/2021 1:06 PM SUPERVISOR GEAR REPAIR): Encouraged healthy lifestyle, good nutrition and exercise. Encouraged Calcium and Vitamin D and weight bearing exercise for bone health. Reviewed immunizations Reviewed age appropirate screenings. Encounters Date Type Department Care Team Description 09/11/2025 2:45 PM CDT Office Visit [facility] [address] [place] [id number] Roger Arauz NP Flank pain, unspecified laterality (Primary Dx); Personal history of kidney stones; Tachycardia; Pre-diabetes; Morbid obesity (HCC) 09/11/2025 Nurse Triage [facility] [address] [facility] [address] [place] [address] Luisa Ochoa PA from Last 3 Months Immunizations Immunization Administration Dates Next Due Influenza, Quadrivalent, Spl it, Intramuscular 09/29/2014 Influenza, Unspecified 11/30/2024(Deferr ed: Patient Refused),01/12/2024(Deferred: Patient Refused),01/12/2024(Deferred: Patient Refused),12/09/2021(Deferred: Patient Refused),12/09/2021(Deferred: Patient Refused) Tdap 12/15/2023,09/29/2014 Medical History Medical History Date Comments Anxiety Depression PCOS (polycystic ovarian syndrome) Family History Medical History Relation Name Comments Hyperlipidemia Father Multiple sclerosis Father Alzheimer's disease Maternal Grandfather Heart disease Maternal Grandfather Essential Tremor Mother Hyperlipidemia Mother autoimmune conditions Other patern al grandma Psoriais; pat Aunt Raynauds Heart attack Paternal Grandfather Diabetes Paternal Grandmother Relation Name Status Comments Father Maternal Grandfather Mother Other Paternal Grandfather Paternal Grandmother Social History Tobacco Use Types Packs/Day Years [...] on file Legal Sex Female 11:15 AM SUPERVISOR GEAR REPAIR Gender Identity Not on file Sexual Orientation Not on file 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 Not on file Not on file Obstetrics History Last Filed Vital Signs Vital Sign Reading Time Taken Comments Blood Pressure 122/80 09/11/2025 2:21 PM CDT Pulse 123 09/11/2025 2:21 PM CDT Temperature 36.2 C (97.2 F) 09/11/2025 2:21 PM CDT Respiratory Rate 18 09/11/2025 2:21 PM CDT Oxygen Saturation 99% 09/11/2025 2:21 PM CDT Inhaled Oxygen Concentration - - Weight 160.7 kg (354 lb 3.2 oz) 04/05/2025 7:34 AM CDT Height 170.2 cm (5' 7) 09/11/2025 2:21 PM CDT Body Mass Index 55.48 04/05/2025 7:34 AM CDT Plan of Treatment Health Maintenance Due Date Last Done Comments Breast Cancer Screening-Mammogram 1985 Hepatitis C Screening 1985 Varicella Vaccines (1 of 2 - 13+ 2-dose series) 1998 Hepatitis B Screening 2003 HPV Vaccines (1 - 3-dose SCDM series) 02/10/2012 Influenza Vaccine (#1) 2025 09/29/2014 Depression Screening 04/05/2026 04/05/2025, 12/15/2023, 12/15/2023, Additional history exists Regular Well Visit/Exam 18-64 04/05/2026 04/05/2025, 12/15/2023, 12/09/2021 Cervical Cancer Screening 04/05/2030 04/05/2025 DTaP/Tdap/Td Vaccine (3 - Td or Tdap) 12/15/2033 12/15/2023, 09/29/2014 Pneumococcal vaccine <65 Aged Out No longer eligible based on patient's age to complete this topic Procedures Procedure Name Priority Date/Time Associated Diagnosis Comments POCT URINALYSIS DIPSTICK Routine 09/11/2025 2:39 PM CDT Flank pain, unspecified laterality POCT HCG, URINE Routine 09/11/2025 2:38 PM CDT Flank pain, unspecified laterality PAP AND HPV, REFLEX TO HPV GENOTYPES Routine 04/05/2025 1:10 PM CDT Screening examination for STD (sexually transmitted disease) Cervical cancer screening from Last 3 Months or Most Recently Relevant to Health Maintenance Results * (ABNORMAL) POCT urinalysis dipstick (09/11/2025 2:39 PM CDT) Color, Urine, POC Yellow Clarity, ur, POC Cloudy(A) Clear Glucose, ur, POC Negative Negative Bilirubin, ur, POC Negative Negative Ketones, ur, POC Negative Negative Specific [place], POC 1.030 1.003 - 1.030 Blood, ur, POC Negative Negative pH, ur, POC 5.5 5.0 - 8.0 Protein, ur, POC 30.(A) Negative Urobilinogen, urine, POC 0.2 0.2 - 1.0 mg/dL Nitrite, ur, POC Negative Negative Leukocytes, ur, POC Trace(A) Negative Lot Number [id number] Urine 09/11/2025 2:39 PM CDT [facility] POINT OF CARE TEST OR DERABLES Final Result * POCT hCG, urine (09/11/2025 2:38 PM CDT) HCG, ur, POC Negative Negative Lot Number 123 QC Backgroud Clear Acceptable QC Control Line Acceptable Urine 09/11/2025 2:38 PM CDT Roger Arauz CLOCK SMITH POINT OF CARE TEST OR DERABLES Final Result * Pap and HPV, reflex to HPV Genotypes (04/05/2025 1:10 PM CDT) CLINICAL INFORMATION: [facility] Comment:CERVICAL CANCER SCRE ENING LMP [facility] Comment:04/05/2025 Previous Pap [email or web address] Comment:NONE GIVEN Prev. Bx [facility] Comment:NONE GIVEN SOURCE: [facility] Comment:Cervix, Endocervix Pap, specimen adequacy [facility] Comment: Satisfactory for evaluation. Endocervical/transformation zone component present. HPV interp [facility] Comment: Cytology Results: Negative for intraepithelial lesion or malignancy. COMMENTS [facility] Comment: This Pap test has been evaluated with computer assisted technology. Mussel Farmer [email or web address] Comment: CBN, CT(ASCP) CT Screening location: [address] [facility] Comment: JJO, CT(ASCP) CT Screening Location: [address] [facility] Comment: EXPLANATORY NOTE: The Pap is a screening test for cervical cancer. It is not a diagnostic test and is subject to false negative and false positive results. It is most reliable when a satisfactory sample, regularly obtained, is submitted with relevant clinical findings and history, and when the Pap result is evaluated along with historic and current clinical information. Human papillomavirus DNA, High Risk E6/E7 Not Detected NOT DETECTED [facility] Comment: Not Detected High Risk HPV types (16,18,31,33,35,39,45,51,52, 56,58,59,66,68) were not detected. Other HPV types which cause anogenital lesions may be present. The significance of the other types of HPV in malignant processes has not been established. Methodology: Real Time PCR Thin prep-Endocervica l 04/05/2025 1:10 PM CDT 04/06/2025 4:36 PM CDT Luisa DUNN LAB CYTOLOGY ORDERABLES [facility] [place] [address] [place] [address] from Last 3 Months or Most Recently Relevant to Health Maintenance Insurance [facility] Care Teams Information Technology Professor Relationship Specialty Start Date End Date Luisa Ochoa PA [address] [facility] [address] [place] [address] PCP - General Internal Medicine 11/12/21
--- OUTSIDE RECORDS SUMMARY | 2025-09-11 16:12 | XMS_ITS | Clinical Summary ---
Author Organization [facility] Address [address] [place] [address] Care Team Providers Care Manager Client Service Name Role Phone Unavailable Primary Care Provider Unavailabl e Source Comments [facility],non-owned Affiliates and Associated Physician Practices is amultiple site organization consisting of ambulatory clinics and hospital sitesin [place], [place], [place] and [place]. This disclosure is being madepursuant to the Care Everywhere program and may not contain all information available regarding this patient. Last updated 18.[facility] Allergies Active Allergy Reactions Criticality Noted Date Comments Ciprofloxacin 08/27/2016 Medications * Be aware that medications may not be up to date on this document. Alwaysverify current medications with the patient. Loratadine-Pseu doephedrine (CLARITIN-D 24 HOUR PO) Active Vjprsrapx-GEB-T M-APAP (FLU/COLD/COUGH MEDICINE PO) Active benzonatate (TESSALON) 200 MG capsuleIndicati ons:Acute URI Take 1 Cap by mouth 3 times daily as needed for Cough 30 Cap 0 6 Active albuterol HFA (PROAIR HFA) 108 (90 BASE) MCG/ACT inhalerIndicati ons:Acute URI Inhale 2 Puffs by mouth every 4 hours as needed for Shortness of Breath, Wheezing or Cough 1 Inhaler 1 6 Active Social History Tobacco Use Types Packs/Day Years Used Date Smoking Tobacco: Never Assessed Comments Unknown Sex and Gender Information Value Date Recorded Sex Assigned at Not on file Legal Sex Female 4:54 PM CDT Gender Identity Not on file Sexual Orientation Not on file Last Filed Vital Signs Vital Sign Reading Time Taken Comments Blood Pressure 102/76 08/27/2016 10:26 AM CDT Pulse 133 08/27/2016 10:26 AM CDT Temperature 36.9 C (98.4 F) 08/27/2016 10:26 AM CDT Respiratory Rate - - Oxygen Saturation 98% 08/27/2016 10:26 AM CDT Inhaled Oxygen Concentration - - Weight 145.2 kg (320 lb) 08/27/2016 10:26 AM CDT Height 170.2 cm (5' 7) 08/27/2016 10:26 AM CDT Body Mass Index 50.12 08/27/2016 10:26 AM CDT Plan of Treatment Health Maintenance Due Date Last Done Comments LIPID TESTING 1985 MAMMOGRAM 1985 HIV SCREENING 02/10/2000 HEPATITIS C SCREENING 02/05/2003 DTAP/TDAP/TD VACCINES (1 - Tdap) 02/10/2004 HEPATITIS B VACCINE (1 of 3 - 19+ 3-dose series) 02/10/2004 HPV VACCINE (1 - 3-dose SCDM series) 02/10/2012 DEPRESSION SCREENING 11/30/2024 COVID-19 VACCINE (1 - 2023-2 5 season) 2025 INFLUENZA VACCINE (#1) 2025 ZOSTER VACCINE (1 of 2) 2035 HIB VACCINE Aged Out No longer eligi ble based on patient's age to complete this topic MENINGOCOCCAL (Group B) VACC INE SHARED DECISION-MAKING Aged Out No longer eligibl e based on patient's age to complete this topic MENINGOCOCCAL GROUPS A/C/Y/W VACCINE Aged Out No longer eligible b ased on patient's age to complete this topic PNEUMOCOCCAL VACCINE Aged Out No long er eligible based on patient's age to complete this topic [place] [address] [place] [address]
--- OUTSIDE RECORDS SUMMARY | 2025-09-11 16:12 | XMS_ITS | Encounter Summary ---
Author Organization [facility] Healthcare Address [address] [place] [address] Care Team Providers Care Electrical Logging Operator Name Role Phone Luisa Ochoa Primary Care Provider +1- [phone] Reason for Visit * Reason Onset Date Comments Flank Pain 09/11/2025 Encounter Details Date Type Department Care Team (Late st Contact Info) Description 09/11/2025 Nurse Triage [facility] Family Medicine [address] [place] [address] Luisa Ochoa PA [address] [place] [address] Social History Tobacco Use Types Packs/Day Years [...] on file 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 Denies injury, fever. HO history of kidney stones. Denies hematuria. Rates her pain as mild currently. She was taking Ibuprofen and resting. She applied heat. C.O bloating and decreased appetite. Last BM this morning. No appt available in the office. Appt scheduled today [facility] Care Advice Given: Drink plenty of water, Cranberry juice, heat, Tylenol or Ibuprofen Educated to call back if worsens, new symptoms develop or has further questions or concerns. Regarding: left sided front and back pain ----- Message from Franklin Tejada sent at 09/11/2025 8:38 AM CDT ----- Symptom Based Call Chief Complaint(s): left sided front and back pain bloating, anxiety Duration: What type of symptom(s) is the patient experiencing? Non-Emergent. Is this a new or reoccurring symptom(s)? new What have you tried to help your symptom(s)? Ibuprofen Why was appointment not scheduled? Appointment availability did not meet the patient's need. Additional Comments: na Does message need to be routed? Yes-Action Needed documented in this encounter Plan of Treatment Not on file documented as of this encounter Visit Diagnoses Not on filedocumented in this encounter Care Teams Electrical Logging Operator Relationship Specialty Start Date End Date Luisa Ochoa PA [address] [place] [address] PCP - General Internal Medicine 11/12/21 documented as of this encounter
[2025-09-11 16:27] VITALS: BP 146/93; PULSE 109; RESP 16; TEMP 36.7; O2SAT 99
[2025-09-11 20:10] LABS: BEDSIDEPREGUCG Negative (Negative)
[2025-09-11 20:27] LABS: Add Urine Microscopic? YES; Appearance Urine Cloudy (Clear); Glucose Urine UA Negative (Negative); Leukocyte Esterase Ur 1+ LEU/UL (Negative); Need Manual Microscopic Reviewed; Nitrate Urine Negative (Negative); Non Pathogenic Casts 0-2; Specific Grav Ur 1.036 (1.001-1.035)
--- OUTSIDE RECORDS SUMMARY | 2025-09-11 20:52 | XMS_ITS | Clinical Summary ---
Author Organization [facility] [place] [address] Address [address] [place] [address] Care Team Providers Care Cement Loader Name Role Phone Luisa Ochoa Primary Care Provider +1- [phone] Allergies Active Allergy Reactions Criticality Noted Date [...] kidney stones 09/11/2025 Assessment & Plan (09/11/2025 5:27 PM CDT): BMI 50.0-59.9, adult 04/05/2025 Assessment & Plan (04/05/2025 7:39 AM CDT): Discussed the patient's BMI. The BMI is above average. BMI management plan is completed. BMI Follow-up includes: nutrition counseling, exercise counseling and education provided. Morbid obesity 04/05/2025 Assessment & Plan (09/11/2025 5:27 PM CDT): Assessment & Plan (04/11/2025 12:43 PM CDT): Discussed the patient's BMI. The BMI is above average. BMI management plan is completed. BMI Follow-up includes: nutrition counseling, exercise counseling and education provided. Episode of recurrent major depressive disorder 0 12/15/2023 Annual physical exam 12/15/2023 Assessment & Plan (12/15/2023 10:52 AM FIELD MAP EDITOR): Encouraged healthy lifestyle, good nutrition and exercise. Encouraged Calcium and Vitamin D and weight bearing exercise for bone health. Reviewed immunizations Reviewed age appropirate screenings. Thrombophlebitis 12/15/2023 Assessment & Plan (12/15/2023 10:51 AM FIELD MAP EDITOR): This is a significant, separately identifiable problem [...] plan. Pre-diabetes 02/02/2022 Assessment & Plan (09/11/2025 5:27 PM CDT): Assessment & Plan (04/11/2025 12:43 PM CDT): Pre-diabetes/hyperglycemia is a precursor to Dm. Stressed importance of working on diet (decrease your simple sugars and one carbohydrate with each meal) and increase you exercise to achieve weight loss and this will help prevent you from progressing to diabetes. Assessment & Plan (12/15/2023 8:54 AM FIELD MAP EDITOR): Pre-diabetes/hyperglycemia is a precursor to Dm. Stressed [...] it. Assessment & Plan (02/02/2022 10:29 PM FIELD MAP EDITOR): See PCOS Vitamin D deficiency 01/14/2022 Assessment & Plan (04/11/2025 12:43 PM CDT): Supplement Assessment & Plan (12/15/2023 8:54 AM FIELD MAP EDITOR): Supplement Assessment & Plan (02/18/2022 12:42 PM CDT): Supplement Assessment & Plan (02/02/2022 10:29 PM FIELD MAP EDITOR): Supplement PCOS (polycystic ovarian syndrome) 12/21/2021 Assessment [...] labs Assessment & Plan (12/15/2023 8:53 AM FIELD MAP EDITOR): Patient was diagnosed with PCOS at 16 [...] visit. Assessment & Plan (02/02/2022 10:29 PM FIELD MAP EDITOR): Discussed PCOS at length including pathophys, treatment options and extermination supervisor sequela not limited to Metabolic syndrome, DM, [...] 6. Assessment & Plan (12/21/2021 1:09 PM FIELD MAP EDITOR): This is a significant, separately identifiable problem that was evaluated and managed on the same day as the wellness exam Discussed PCOS at length including pathophys, treatment options and snf sequela not limited to Metabolic syndrome, DM, increased CVrisk. Stressed needs to have a cycle at least q 90 days to avoid increased risk for hyperplasia. Discussed antiandrogenic medication/treatment options. Will check labs to confirm diagnosis. Influenza vaccine refused 12/21/2021 Assessment & Plan (12/21/2021 1:14 PM FIELD MAP EDITOR): Encouraged. Pt refused Anxiety, generalized 12/21/2021 Assessment & Plan (12/15/2023 8:54 AM FIELD MAP EDITOR): This is a significant, separately identifiable problem [...] BuSpar Assessment & Plan (02/02/2022 10:29 PM FIELD MAP EDITOR): Continue per Psychiatry Assessment & Plan (12/21/2021 1:14 PM FIELD MAP EDITOR): Continue per Psychiatry. Resolved Problems Problem Noted [...] 12/15/2023 Assessment & Plan (12/15/2023 7:54 AM FIELD MAP EDITOR): Discussed the patient's BMI. The BMI is above average. BMI management plan is completed. BMI Follow-up includes: nutrition counseling, exercise counseling and education provided. Need for Tdap vaccination 12/15/2023 Assessment & Plan (12/15/2023 10:51 AM FIELD MAP EDITOR): Updated in the office today Fatigue 12/15/2023 07/05/2025 Assessment & Plan (04/11/2025 12:43 PM CDT): Probably multifactorial. Check labs and followup to re-evaluate Assessment & Plan (12/15/2023 10:51 AM FIELD MAP EDITOR): Probably multifactorial. Check labs and followup to re-evaluate Lipid screening 12/15/2023 07/05/2025 Assessment & Plan (04/11/2025 12:43 PM CDT): Check labs Assessment & Plan (12/15/2023 10:52 AM FIELD MAP EDITOR): Check labs Morbid obesity with BMI of 50.0-59.9, adult 02/18/2022 07/05/2025 Assessment & Plan (04/05/2025 7:39 AM CDT): Discussed the patient's BMI. The BMI is above average. BMI management plan is completed. BMI Follow-up includes: nutrition counseling, exercise counseling and education provided. Assessment & Plan (12/15/2023 9:22 AM FIELD MAP EDITOR): The BMI is above average. BMI management [...] 02/18/2022 Assessment & Plan (01/14/2022 9:08 AM FIELD MAP EDITOR): Obesity is unchanged. Discussed the patient's BMI. The BMI is above average. BMI management plan is completed. BMI Follow-up includes: nutrition counseling, exercise counseling and education provided. Diabetes mellitus screening 12/21/2021 02/02/2022 Assessment & Plan (12/21/2021 1:09 PM FIELD MAP EDITOR): Check labs Lipid screening 12/21/2021 02/02/2022 Assessment & Plan (12/21/2021 1:09 PM FIELD MAP EDITOR): Check labs Fatigue 12/21/2021 02/02/2022 Assessment & Plan (12/21/2021 1:10 PM FIELD MAP EDITOR): Probably multifactorial. Check labs and followup to re-evaluate Positive depression screening 12/09/2021 02/02/2022 Assessment & Plan (12/21/2021 1:06 PM FIELD MAP EDITOR): Patient is undergoing evaluation and treatment with psychiatrist. She is just change her medications. She currently denies any suicidal or homicidal thoughts but is to follow up immediately those occur. BMI 50.0-59.9, adult 12/09/2021 022 Assessment & Plan (12/09/2021 7:49 AM FIELD MAP EDITOR): Obesity is unchanged. Discussed the patient's BMI. The BMI is above average. BMI management plan is completed. BMI Follow-up includes: nutrition counseling, exercise counseling and education provided. Morbid obesity 12/09/2021 01/14/2022 Assessment & Plan (12/09/2021 7:49 AM FIELD MAP EDITOR): Obesity is unchanged. Discussed the patient's BMI. The BMI is above average. BMI management plan is completed. BMI Follow-up includes: nutrition counseling, exercise counseling and education provided. Annual physical exam 12/09/2021 022 Assessment & Plan (12/21/2021 1:06 PM FIELD MAP EDITOR): Encouraged healthy lifestyle, good nutrition and exercise. Encouraged Calcium and Vitamin D and weight bearing exercise for bone health. Reviewed immunizations Reviewed age appropirate screenings. 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 Not on file Not [...] Negative Ketones, ur, POC Negative Negative Specific [place], POC 1.030 1.003 - 1.030 Blood, ur, POC Negative Negative pH, ur, POC 5.5 5.0 - 8.0 Protein, ur, POC 30.(A) Negative Urobilinogen, urine, POC 0.2 0.2 - 1.0 mg/dL Nitrite, ur, POC Negative Negative Leukocytes, ur, POC Trace(A) Negative Lot Number [id number] Urine 09/11/2025 2:39 PM CDT [facility] [email or web address] Arauz RENAL SOCIAL WORKER POINT OF CARE TEST OR DERABLES Final Result * POCT hCG, urine (09/11/2025 2:38 PM CDT) HCG, ur, POC Negative Negative Lot Number 123 QC Backgroud Clear Acceptable QC Control Line Acceptable Urine 09/11/2025 2:38 PM CDT Roger Arauz RENAL SOCIAL WORKER POINT OF CARE TEST OR DERABLES Final Result * Pap and HPV, reflex to HPV Genotypes (04/05/2025 1:10 PM CDT) CLINICAL INFORMATION: [facility] Comment:CERVICAL CANCER SCRE ENING LMP [facility] Comment:04/05/2025 Previous Pap [facility] Comment:NONE GIVEN Prev. Bx [facility] Comment:NONE GIVEN SOURCE: [facility] Comment:Cervix, Endocervix Pap, specimen adequacy [facility] Comment: Satisfactory for evaluation. Endocervical/transformation zone component present. HPV interp [facility] Comment: Cytology Results: Negative for intraepithelial lesion or malignancy. COMMENTS [facility] Comment: This Pap test has been evaluated with computer assisted technology. Label Operator Immanuel [employer] Comment: CBN, CT(ASCP) CT Screening location: [address] [address] Review corrugator operator helper [facility] Comment: JJO, CT(ASCP) CT Screening Location: [address] [address] Comment [facility] Comment: EXPLANATORY NOTE: The Pap is a [...] High Risk E6/E7 Not Detected NOT DETECTED [facility] Comment: Not Detected High Risk HPV types (16,18,31,33,35,39,45,51,52, 56,58,59,66,68) were not detected. Other HPV types which cause anogenital lesions may be present. The significance of the other types of HPV in malignant processes has not been established. Methodology: Real Time PCR Thin prep-Endocervica l 04/05/2025 1:10 PM CDT 04/06/2025 4:36 PM CDT Luisa [facility] ORDER[facility]LES [facility] Result [place] [address] [place] [address] from Last 3 Months or Most Recently Relevant to Health Maintenance Insurance [facility] Care Teams Cement Loader Relationship Specialty Start Date End Date Luisa Ochoa PA [address] [facility] [address] [place] [address] PCP - General Internal Medicine 11/12/21
--- OUTSIDE RECORDS SUMMARY | 2025-09-11 20:52 | XMS_ITS | Clinical Summary ---
Author Organization [facility] Address [address] [address] Care Team Providers Care Community Recreation Coordinator Name Role Phone Unavailable Primary Care Provider Unavailabl e Source Comments [facility],non-owned Affiliates and Associated Physician Practices is amultiple site organization consisting of ambulatory clinics and hospital sitesin [place], [place], [place] and [place]. This disclosure is being madepursuant to the Care Everywhere program and may not contain all information available regarding this patient. Last updated 18.[facility] [employer] Allergies Active Allergy Reactions Criticality Noted Date Comments Ciprofloxacin 08/27/2016 Medications * Be aware that medications may not be up to date on this document. Alwaysverify current medications with the patient. Loratadine-Pseu doephedrine (CLARITIN-D 24 HOUR PO) Active Wdabmhkwg-ABA-Y M-APAP (FLU/COLD/COUGH MEDICINE PO) Active benzonatate (TESSALON) [...] patient's age to complete this topic Insurance [place] [id number]
--- OUTSIDE RECORDS SUMMARY | 2025-09-11 20:52 | XMS_ITS | Encounter Summary ---
Author Organization [facility] Healthcare Address [address] [place] [address] Care Team Providers Care Rn Occupational Name Role Phone Luisa Ochoa Primary Care Provider +1- [phone] Reason for Visit * Reason Onset Date Comments Flank Pain 09/11/2025 Encounter Details Date Type Department Care Team (Late st Contact Info) Description 09/11/2025 Nurse Triage [facility] Family Medicine [address] [place] [address] Luisa Ochoa PA [address] [place] [address] Social History Tobacco Use Types [...] on file Legal Sex 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 Appt scheduled today [facility] Care Advice Given: Drink plenty of water, [...] on filedocumented in this encounter Care Teams Rn Occupational Relationship Specialty Start Date End Date Luisa Ochoa PA [address] [place] [address] PCP - General Internal Medicine 11/12/21 documented as of this encounter
--- NOTE | 2025-09-11 21:20 | ED_ITS ---
HPI - Back Pain/Injury General Chief Complaint: Back Pain/Injury Stated Complaint: potential kidney stone Time Seen by Provider: 09/11/25 20:03 History of Present Illness HPI Narrative: Patient is a 40-year-old female who presents to the ER with lower left-sided flank pain. She reports she 1st noticed her pain on , 4 days ago. Patient reports she experienced significant fatigue over the weekend. She also endorses a headache intermittently, abdominal bloating and waves of appetite changes. Patient denies any urinary symptoms, recent fevers, saddle anesthesia. She endorses a history of sciatica and endorses intermittent left leg numbness and tingling with standing. But patient endorses a recent urinary tract infection (approximately 2 weeks ago) and completed a round of antibiotics to treat it. Related Data Home Medications ?Medication ?Instructions ?Recorded ?Confirmed ?Last Taken ?Type drospirenone 3 mg-ethinyl tablet 04/29/25 Unknown His tory estradiol 0.02 mg tablet Allergies Allergy/AdvReac Type Severity Reaction Status Date / Time ciprofloxacin Allergy Unknown Hives Verified 04/29/25 11:07 citalopram Allergy Swelling Verified 04/29/25 11:07 of the Eye Review of Systems 2 Review of Systems: All systems reviewed & are unremarkable except as noted in HPI and below [facility] Family History Family History Legal Guardian Blood clot in vein after hip surgery Exam 2 Narrative: GENERAL: Well appearing, obese, non-toxic, in no acute distress. HEAD: Normocephalic, atraumatic. NECK: Supple. No adenopathy, no masses. RESPIRATORY: Airway patent, respirations nonlabored. Clear to auscultation bilaterally, no rales, rhonchi, wheezing. CARDIOVASCULAR: Regular rate and rhythm without murmurs, rubs, or gallops. Peripheral pulses 2+ and equal bilaterally. Negative CVA tenderness ABDOMINAL: Soft, nontender, nondistended, no hepatosplenomegaly. Normoactive BS. MUSCULOSKELETAL: Moves all extremities. Strength/ROM intact without gross deformities. Negative straight leg test bilaterally SKIN: Warm, dry, normal color. No rashes. NEURO: A&O X3. Speech clear. Cranial nerves II-XII intact. No ataxic movements. PSYCHIATRIC: Appropriate mood and affect. Normal interaction. Course Vital Signs Vital signs: Vital Signs Temperature 36.7 C 09/11/25 16:27 Pulse Rate 109 H 09/11/25 16:27 Respiratory Rate 16 09/11/25 16:27 Blood Pressure 146/93 H 09/11/25 16:27 Pulse Oximetry 99 09/11/25 16:27 Oxygen Delivery Room Air 09/11/25 16:27 Temperature 36.7 C 09/11/25 23:49 Pulse Rate 79 09/11/25 23:49 Respiratory Rate 20 09/11/25 23:49 Blood Pressure 145/87 H 09/11/25 23:49 Pulse Oximetry 98 09/11/25 23:49 Oxygen Delivery Room Air 09/11/25 16:27 MDM - Back Pain/Injury MDM Narrative Medical decision making narrative: Patient is a 40-year-old female who presents to the ER with lower left-sided flank pain. She reports she 1st noticed her pain on , 4 days ago. Patient reports she experienced significant fatigue over the weekend. She also endorses a headache intermittently, abdominal bloating and waves of appetite changes. Patient denies any urinary symptoms, recent fevers, saddle anesthesia or current numbness/tingling. She endorses a history of sciatica and endorses intermittent left leg numbness and tingling with standing at baseline. Patient endorses a recent urinary tract infection (reports it was approximately 2 weeks ago but her chart indicates in was almost 2 months ago) and completed a round of antibiotics (Bactrim) to treat it. Labs Ordered: CBC, CMP, lactic acid, UA Imaging Ordered: CT abdomen pelvis, CT lumbar Medications Ordered:1 L normal saline IV bolus, Toradol 15 mg IV, Augmentin Results: Pt's CT scans indicate The lung bases are clear. The liver parenchyma is unremarkable. No intrahepatic mass or ductal dilatation is evident. The gallbladder is unremarkable. The pancreas and spleen are normal in appearance. The adrenal glands are symmetric in size. The kidneys demonstrate symmetric uptake and excretion of contrast. 1.6 cm there left renal cyst. There is no solid mass. There is no hydronephrosis. Evaluation of the stomach and bowel loops are limited due to lack of oral contrast. The appendix is normal in appearance. The bladder and rectum are normal. No free intraperitoneal fluid or air is evident. There is no significant retroperitoneal lymphadenopathy. The aorta, visceral vessels and renal arteries demonstrate normal caliber and patency. The lower thoracic and lumbar vertebrae are in normal alignment. The axial images demonstrate no acute fracture or paravertebral soft tissue swelling. There is severe degenerative changes at L5-S1 with disc bulging causing severe central canal stenosis. Diagnosis: lumbar radiculopathy, urinary tract infection Consults: neurosurgery (outpatient) Patient Education/Shared MDM: Results of lab work and imaging shared with patient. She endorses improvement of symptoms following medication administration. Patient strongly advised to maintain hydration status upon discharge and follow-up with Neurosurgery as soon as possible. She will be discharged home with a prescription for ibuprofen 800 mg and Augmentin. Strict return precautions provided. Patient verbalized understanding and is in agreement with plan. Vital signs stable at time of discharge. All questions answered. Differential Diagnosis Differential diagnosis: Likely lumbar radiculopathy, sciatica, strain of lumbar region, pyelonephritis and other (Urinary tract infection, degenerative disc disorder) Lab Data Attestation: I reviewed the patient's lab results. 09/11/25 21:32 09/11/25 21:32 Labs: Lab Results 09/11/25 09/11/25 09/11/25 Range/Units 20:05 20:08 21:32 WBC 8.7 (4.5-10.0) K/mm3 RBC 4.95 (4.2-5.4) M/mm3 Hgb 13.8 (12.0-15.0) g/dL Hct 42.8 (37.0-47.0) % MCV 86.5 (80-100) fl MCH 27.9 (26-34) pg MCHC 32.2 (32-36) g/dl RDW 14.5 (11.5-14.5) % Plt Count 366 (150-375) k/mm3 MPV 9.3 (7.4-10.4) fl Immature Gran % (Auto) 0.3 (0-0.5) % Neut % (Auto) 69.7 (45.5-73.1) % Lymph % (Auto) 22.7 (18.3-44.2) % [place] % (Auto) 6.8 (2.6-8.5) % Eos % (Auto) 0.2 (0-4.4) % Baso % (Auto) 0.3 (0.2-1.2) % Lymph # (Auto) 1.98 (0.9-3.2) K/mm3 [place] # (Auto) 0.6 (0.1-0.6) K/mm3 Eos # (Auto) 0.0 (0-0.3) K/mm3 Baso # (Auto) 0.0 (0.0-0.1) K/mm3 Abs Immat Gran (auto) 0.03 (0.00-0.031) K/mm3 Absolute Neuts (auto) 6.1 (1.3-6.7) K/mm3 Absolute Nucleated RBC 0.000 (0.0-0.012) K/mm3 Nucleated RBC % 0.0 (0.0-0.2) % Sodium 136 L (137-145) mmol/L Potassium 4.8 (3.4-5.0) mmol/L Chloride 102 (98-107) mmol/L Carbon Dioxide 28 (22-30) mmol/L Anion Gap 6 (4-12) mmol/L BUN 16 (7-17) mg/dL Creatinine 0.79 (0.7-1.0) mg/dL Estim Creat Clear Calc 130 ml/min Estimated GFR > 60 (59 - ) Glucose 109 (65-110) mg/dL Lactic Acid 1.0 (0.7-2.0) mmol/L Calcium 9.0 (8.4-10.2) mg/dL Total Bilirubin 0.6 (0.2-1.3) mg/dL AST 30 (14-36) U/L ALT 21 (6-35) U/L Alkaline Phosphatase 86 (38-126) U/L Total Protein 8.1 (6.3-8.2) g/dL Albumin 4.2 (3.5-5.1) g/dL Urine Color Yellow (Yellow) Urine Appearance Cloudy H (Clear) Urine pH 5.0 (5.0-9.0) Ur Specific [place] 1.036 H (1.001-1.035) Urine Protein Trace (Negative) mg/dL Urine Glucose (UA) Negative (Negative) mg/dL Urine Ketones Trace H (Negative) mg/dL Ur Blood (Man) Negative (Negative) Urine Nitrate Negative (Negative) Urine Bilirubin Negative (Negative) Urine Urobilinogen 1.0 (<2.0) mg/dL Add Ur Microanalysis Reviewed Leukocyte Esterase Rfl 1+ H (Negative) ANASTASIYA/UL Urine RBC 0-2 (0-2) /hpf Urine WBC 21-50 H (0-3) /hpf Urine WBC Clumps Present H (None) /HPF Ur Squamous Epith Cells Few (Few) /hpf Urine Bacteria 2+ H /hpf Urine Casts 0-2 Urine Mucus Present /lpf POC Urine HCG, Qual Negative (Negative) Imaging Data Attestation: I personally reviewed and interpreted this imaging study as follows: Radiologist's impression: Impressions Miscellaneous CT Procedure 09/11/25 22:48 IMPRESSION: No acute abnormality is noted in the abdomen and pelvis. CT LUMBAR SPINE WITH CONTRAST INDICATION: Back pain COMPARISON: None available. TECHNIQUE: Axial 2.5 mm images of the lumbar spine were obtained with contrast. Additional coronal and sagittal reformatted images were rendered. FINDINGS: The axial images demonstrate no acute fracture or paravertebral soft tissue swelling. There is severe degenerative changes at L5-S1 with disc bulging causing severe central canal stenosis. IMPRESSION: No acute compression fracture or spondylolisthesis. Severe degenerative changes at L5-S1. All CT scans at this facility are performed using low dose modulation techniques as appropriate to perform exam including the following: automated exposure control; use of iterative reconstruction technique; adjustment of the mA and/or kV according to patient size (this includes techniques or standardized protocols for targeted exams where dose is matched to indication/reason for exam). Discharge Plan Discharge Clinical Impression: Lumbar radiculopathy, Degenerative disc disease, Urinary tract infection Patient Disposition: Home Condition: Stable Instructions: Antibiotic Form, Acute Low Back Pain (ED), Lower Back Exercises (ED) Additional Instructions: Please return to the ER with any worsening symptoms. Follow-up with Neurosurgery as soon as possible. Take all medications as prescribed, including regularly scheduled medications. Complete your full dose of antibiotics. If you lose control of your bladder or experience numbness and tingling down your legs, please return to the ER immediately. Patient Language: Latvian Prescriptions: New amoxicillin-pot clavulanate 875-125 mg tablet 1 tablet PO Q12H Qty: 20 0RF ibuprofen 800 mg tablet 800 mg PO TID PRN (Reason: pain) Qty: 30 0RF No Action drospirenone-ethinyl estradiol 3-0.02 mg tablet azithromycin [Zithromax Z-Kiet] 250 mg tablet See Rx Instructions .ROUTE .COMPLEX Qty: 6 0RF Rx Instructions: For 250 mg dose pack: take 500 mg today (day 1), then 250 mg for 4 days (days 2-5) fluconazole [Diflucan] 100 mg tablet 100 mg PO DAILY Qty: 1 0RF ibuprofen 200 mg capsule 600 mg PO Q8H PRN (Reason: pain) Qty: 30 0RF Follow-up/Referrals: Marva Spivey MD [Physician, Neurosurgery] Referral Note: neurosurgery Don,SHAUN Moran [Primary Care Provider, Unknown] Stand Alone Forms: Work/School Release IP Time of Disposition: 01:10
[2025-09-11 21:39] LABS: Hematocrit 42.8 % (37.0-47.0); Hemoglobin 13.8 g/dL (12.0-15.0); Immature Granulocyte Percent A 0.3 % (0-0.5); Lymphocytes Absolute Auto 1.98 K/mm3 (0.9-3.2); Mean Corpuscular HGB Conc 32.2 g/dl (32-36); Mean Corpuscular Hemoglobin 27.9 pg (26-34); Mean Corpuscular Volume 86.5 fl (80-100); Nucleated Red Blood Cells Absolute Auto 0.000 K/mm3 (0.0-0.012); Nucleated Red Blood Cells Perc 0.0 % (0.0-0.2); Platelet Count Result 366 k/mm3 (150-375); Red Blood Count 4.95 M/mm3 (4.2-5.4); White Blood Count 8.7 K/mm3 (4.5-10.0)
[2025-09-11] MEDS: SODIUM CHLORIDE 0.9% IV 1,000 ML 999 ML IV CONT (21:52)
[2025-09-11 21:53] LABS: Alanine Aminotransferase 21 U/L (6-35); Albumin Level 4.2 g/dL (3.5-5.1); Alkaline Phosphatase 86 U/L (38-126); Anion Gap 6 mmol/L (4-12); Aspartate Amino Transferase 30 U/L (14-36); Bilirubin,Total 0.6 mg/dL (0.2-1.3); Blood Urea Nitrogen 16 mg/dL (7-17); Calcium 9.0 mg/dL (8.4-10.2); Carbon Dioxide 28 mmol/L (22-30); Chloride 102 mmol/L (98-107); Estimated CRCL calculation 130 ml/min; Estimated Glomerular Filt Rate > 60; Glucose 109 mg/dL (65-110); Potassium 4.8 mmol/L (3.4-5.0); Sodium 136 mmol/L (137-145); Total Protein 8.1 g/dL (6.3-8.2)
[2025-09-11 23:49] VITALS: BP 145/87; PULSE 79; RESP 20; TEMP 36.7; O2SAT 98
[2025-09-12] MEDS: KETOROLAC 15 MG/ML VIAL (*BKC) IV PUSH (01:11)
[2025-09-12 01:14] VITALS: BP 138/84; PULSE 79; RESP 20; TEMP 36.6; O2SAT 99
== END 2025-09-12 01:27 | disposition home or self-care (01) ==
PROVIDERS: Student in an Organized Health Care Education/Training Program; Emergency Provider Registered Nurse; PCP Physician Assistant
DX: M54.16 Radiculopathy, lumbar region (principal); M51.379 Other intervertebral disc degeneration, lumbosacral region without mention of lumbar back pain or lower extremity pain; N39.0 Urinary tract infection, site not specified
CPT/HCPCS: 36415; 72132; 74177; 80053; 81001; 81025; 83605; 85025; 87086; 96361; 96374; 99284; A9270; J1885; J7030; Q9967